=== PATIENT | female | born 2005 | race Caucasian/White ===

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

== ENCOUNTER → 2023-05-04 | Outpatient (CLI) | payer BC ==
--- NOTE | 2023-05-04 11:27 | CT ---
EXAMINATION TYPE: CT brain wo con CT DLP: 1121 mGycm, Automated exposure control for dose reduction was used. DATE OF EXAM: 05/04/2023 11:20 AM COMPARISON: None. CLINICAL INDICATION:Female, 18 years old with history of R47.9 UNSPECIFIED SPEECH DISTURBANCES, JOHNSON, s peech disturbance TECHNIQUE: Brain: Axial CT images of the brain were obtained with coronal and sagittal reformats created and rev iewed. Contrast used: None. Oral contrast used: None. FINDINGS: Brain: Extra-axial spaces: No abnormal extra-axial fluid collections. Ventricular system: Within normal limits Cerebral parenchyma: No acute intraparenchymal hemorrhage or mass effect. The sanchez-white junction is well differentiated. Cerebellum: Unremarkable. Mass effect: No evidence of midline shift. Intracranial vasculature: unremarkable Soft tissues: Normal. Calvarium/osseous structures: No depressed skull fracture. Paranasal sinuses and mastoid air cells: Mild scattered paranasal sinus disease. Visualized orbits: Orbital contents are intact. IMPRESSION: No acute intracranial process.
== END | disposition home or self-care (01) ==
LOC: RADCTMAIN 10:58
PROVIDERS: ATTEND Family Medicine
DX: R47.9 Unspecified speech disturbances (principal)
CPT/HCPCS: 70450

== ENCOUNTER → 2023-05-09 | Outpatient (CLI) | payer BC ==
--- NOTE | 2023-05-10 20:33 | MR ---
EXAMINATION TYPE: MR brain wo con DATE OF EXAM: 05/09/2023 8:53 PM CLINICAL INDICATION:Female, 18 years old with history of R51.9 HEADACHE, UNSPECIFIED; PHH, Headaches, sharp pains in head, mixing words up/together x2 weeks COMPARISON: CT 05/04/2023.. TECHNIQUE: Multi planar, multi sequence imaging was performed through the brain including: T1, T2, In version recovery, Diffusion weighted imaging, and gradient echo imaging. No gadolinium was given. FINDINGS: The sanchez-white junctions, ventricular system, basal cisterns appear unremarkable. Midline structures show no abnormality. Diffusion-weighted imaging shows no evidence of restricted diffusion. The suscep tibility weighted images do not reveal any evidence for micro-hemorrhage. The bone marrow signal is within normal limits. Paranasal sinuses and mastoid air cells: No significant paranasal sinus disease. Visualized orbits: Orbital contents are intact. IMPRESSION: No evidence of intracranial mass or acute/subacute infarct.
== END | disposition home or self-care (01) ==
LOC: RADMRIMAIN 07:30
PROVIDERS: ATTEND Family Medicine
DX: R51.9 Headache, unspecified (principal)
CPT/HCPCS: 70551

== ENCOUNTER → 2023-06-09 | Outpatient (CLI) | payer BC ==
[2023-06-09] MEDS: SODIUM CHLORIDE 0.9% 500 ML 500 ML in EMPTY BAG 1 BAG IV PRN (09:45)
[2023-06-09] MEDS: IRON SUCROSE 100 MG in SODIUM CHLORIDE 0.9% 100 ML IVPB NR (09:46)
[2023-06-09 09:47] VITALS: BP 109/67; PULSE 86; RESP 16; TEMP 97.6
== END ==
LOC: PROCWHC3 09:30
PROVIDERS: ATTEND Physician Assistant Medical
DX: D64.9 Anemia, unspecified (principal)
CPT/HCPCS: 96365; J1756

== ENCOUNTER 2024-06-25 00:18 | Emergency (ER) | payer BC ==
--- NOTE | 2024-06-25 00:35 | ED ---
General Adult HPI - General Chief complaint: Upper Respiratory Infection Stated complaint: cough,SOB Time Seen by Provider: 06/25/24 00:26 Source: patient, RN notes reviewed Mode of arrival: ambulatory Limitations: no limitations - History of Present Illness Initial comments: 19-year-old female with ulcerative colitis presenting to emergency department for complaint of a cough over the past 3 months. Patient states that the cough will fluctuate from dry and productive and states it has been relatively persistent over the past 3 months. States that the cough is worsened over the past month. She denies fevers, chills, rhinorrhea, congestion, headaches, nausea, vomiting, difficulty breathing. Denies history of asthma. - Related Data Previous Rx's Medication Instructions Recorded Albuterol Inhaler [Ventolin Hfa 1 - 2 puff INHALATION Q6H PRN #1 06/25/24 Inhaler] each Allergies Allergy/AdvReac Type Severity Reaction Status Date / Time No Known Allergies Allergy Verified 06/25/24 00:21 Review of Systems ROS Statement: Those systems with pertinent positive or pertinent negative responses have been documented in the HPI. ROS Other: All systems not noted in ROS Statement are negative. Past Medical History Additional Past Medical History / Comment(s): back surg for scoliosis, ulcerative colitis--diagnosed in 2019 History of Any Multi-Drug Resistant Organisms: None Reported Past Surgical History: Back Surgery Additional Past Surgical History / Comment(s): 2018 Past Psychological History: No Psychological Hx Reported Smoking Status: Current every day smoker, Vaper Past Alcohol Use History: None Reported Past Drug Use History: None Reported General Exam Limitations: no limitations ENT exam: Present: normal exam, mucous membranes moist Neck exam: Present: normal inspection. Absent: tenderness, meningismus, lymphadenopathy Respiratory exam: Present: normal lung sounds bilaterally. Absent: respiratory distress, wheezes, rales, rhonchi, stridor Cardiovascular Exam: Present: regular rate, normal rhythm, normal heart sounds. Absent: systolic murmur, diastolic murmur, rubs, gallop, clicks GI/Abdominal exam: Present: soft, normal bowel sounds. Absent: distended, tenderness, guarding, rebound, rigid Course Vital Signs 06/25/24 06/25/24 06/25/24 00:19 00:35 02:46 Temperature 97.7 F 98.2 F Pulse Rate 80 48 L Respiratory 16 16 14 Rate Blood Pressure 111/72 103/65 O2 Sat by Pulse 100 99 Oximetry Medical Decision Making - Medical Decision Making Was pt. sent in by a medical professional or institution (, [facility], LIBRARY SERIALS ASSISTANT, urgent care, hospital, or correction...) When possible be specific @ -No Did you speak to anyone other than the patient for history (EMS, parent, family, police, friend...)? What history was obtained from this source @ -No Did you review nursing and triage notes (agree or disagree)? Why? @ -I reviewed and agree with nursing and triage notes Were old charts reviewed (outside hosp., previous admission, EMS record, old EKG, old radiological studies, urgent care reports/EKG's, correction records)? Report findings @ -No old charts were reviewed Differential Diagnosis (chest pain, altered mental status, abdominal pain women, abdominal pain men, vaginal bleeding, weakness, fever, dyspnea, syncope, headache, dizziness, GI bleed, back pain, seizure, CVA, palpatations, mental health, musculoskeletal)? @ -Differential Dyspnea: Coronary syndrome, arrhythmia, tamponade, asthma, COPD, pulmonary embolism, pneumonia, pneumothorax, pulmonary effusion, anaphylaxis, diabetic ketoacidosis, flailed chest, pulmonary contusion, diaphragmatic rupture, anemia, neuromuscular, this is not meant to be an all-inclusive list. EKG interpreted by me (3pts min.). @ -none X-rays interpreted by me (1pt min.). @ Chest x-ray completed with no no acute findings within the chest CT interpreted by me (1pt min.). @ -None done U/S interpreted by me (1pt. min.). @ -None done What testing was considered but not performed or refused? (CT, X-rays, U/S, labs)? Why? @ -None What meds were considered but not given or refused? Why? @ -None Did you discuss the management of the patient with other professionals (professionals i.e. [facility] Perea, LIBRARY SERIALS ASSISTANT, lab, RT, psych nurse, social media senior associate, registered nurse first assistant, teacher, public information officer, outpatient case manager)? Give summary @ -No Was smoking cessation discussed for >3mins.? @ -No Was critical care preformed (if so, how long)? @ -No Were there social determinants of health that impacted care today? How? (Homeles sness, low income, unemployed, alcoholism, drug addiction, transportation, low edu. Level, literacy, decrease access to med. care, custodial, rehab)? @ -No Was there de-escalation of care discussed even if they declined (Discuss DNR or withdrawal of care, Hospice)? DNR status @ -No What co-morbidities impacted this encounter? (DM, HTN, Smoking, COPD, CAD, Cancer, CVA, ARF, Chemo, Hep., AIDS, mental health diagnosis, sleep apnea, morbid obesity)? @ -None Was patient admitted / discharged? Hospital course, mention meds given and route, prescriptions, significant lab abnormalities, going to OR and other pertinent info. @ -Discharge. 19-year-old female presenting with cough. Patient is well- appearing. Vitals are stable. Pulmonary examination is unremarkable. Chest x- ray no acute process. viral testing is negative. Patient is provided with outpatient patient for albuterol inhaler instructed follow-up with primary care provider. Return parameters discussed. Case discussed with Undiagnosed new problem with uncertain prognosis? @ -No Drug Therapy requiring intensive monitoring for toxicity (Heparin, Nitro, Insulin, Cardizem)? @ -No Were any procedures done? @ -No Diagnosis/symptom? @ -cough Acute, or Chronic, or Acute on Chronic? @ -acute Uncomplicated (without systemic symptoms) or Complicated (systemic symptoms)? @ -uncomplicated Side effects of treatment? @ -No Exacerbation, Progression, or Severe Exacerbation? @ -No Poses a threat to life or bodily function? How? (Chest pain, USA, OR, pneumonia, PE, COPD, DKA, ARF, appy, cholecystitis, CVA, Diverticulitis, Homicidal, Suicid al, threat to staff... and all critical care pts) @ -No - Lab Data Lab Results 06/25/24 Range/Units 00:42 Influenza Type A (PCR) Not Detected (Not Detectd) Influenza Type B (PCR) Not Detected (Not Detectd) RSV (PCR) Not Detected (Not Detectd) SARS-CoV-2 (PCR) Not Detected (Not Detectd) Disposition Clinical Impression: Cough Disposition: HOME SELF-CARE Condition: Good Instructions (If sedation given, give patient instructions): Acute Cough (ED) Additional Instructions: Return to the emergency department for any new or worsening symptoms. Prescriptions: Albuterol Inhaler [Ventolin Hfa Inhaler] 1 - 2 puff INHALATION Q6H PRN #1 each PRN Reason: Shortness Of Breath Is patient prescribed a controlled substance at d/c from ED?: No Referrals: Leonidas Fan MD [Primary Care Provider] - 1-2 days Time of Disposition: 02:41
[2024-06-25] MEDS: DEXAMETHASONE SOD PHOSPHATE 4 MG/ML 1 ML VIAL IM STA (00:45)
[2024-06-25 01:40] LABS: Influenza A Not Detected (Not Detectd); Influenza B Not Detected (Not Detectd); RSV Not Detected (Not Detectd)
--- NOTE | 2024-06-25 01:48 | XR ---
EXAM: XR Chest, 2 Views CLINICAL HISTORY: ITS.REASON XR Reason: cough, wheeze TECHNIQUE: Frontal and lateral views of the chest. COMPARISON: No relevant prior studies available. FINDINGS: Lungs: Unremarkable. No consolidation. Pleural space: Unremarkable. No pneumothorax. Heart: Unremarkable. No cardiomegaly. Mediastinum: Unremarkable. Normal mediastinal contour. Bones/joints: Postoperative changes of the thoracic spine pending from T1-L1. No acute fracture. IMPRESSION: No acute findings in the chest.
[2024-06-25 02:49] VITALS: BP 103/65; PULSE 48; RESP 14; TEMP 98.2
== END 2024-06-25 02:46 | disposition home or self-care (01) ==
LOC: EC 00:18
DX: R05.9 Cough, unspecified (principal); F17.290 Nicotine dependence, other tobacco product, uncomplicated
CPT/HCPCS: 87636; 71046; 99285; 96372; J1100